=== PATIENT | female | born 1955 | race Caucasian/White ===

== ENCOUNTER 2020-12-17 18:39 | Emergency (ER) | payer OTHER ==
[2020-12-17 18:56] VITALS: TEMP 97.8
[2020-12-17] MEDS ORDERED: SODIUM CHLORIDE 0.9% 500 ML 500 ML IV STA (19:24)
--- NOTE | 2020-12-17 19:44 | ED ---
General Adult HPI - General Chief complaint: Nausea/Vomiting/Diarrhea Stated complaint: Abd pain Time Seen by Provider: 12/17/20 18:59 Source: patient Mode of arrival: ambulatory Limitations: no limitations - History of Present Illness Initial comments: 65 year-old female patient presents to the emergency department for evaluation of right upper quadrant abdominal pain. Patient states that pain started yesterday. States she has had similar episodes intermittently over the last couple of years. Denies any associated nausea, vomiting, fever, chills, di arrhea, constipation, or any other symptoms. Denies radiation of pain to her back or shoulder. Denies any shortness of breath or chest pain. States she has had a hernia in the past and this pain feels similar. She has had cholecystectomy and appendectomy in the past. Patient denies any recent rash, cough, diarrhea, constipation, back pain, numbness, tingling, dizziness, weakness, hematuria, dysuria, urinary urgency, urinary frequency, headache, visual changes, or any other complaints. - Related Data Allergies Allergy/AdvReac Type Severity Reaction Status Date / Time carbamazepine [From Tegretol] Allergy Unknown Verified 12/17/20 18:56 Review of Systems ROS Statement: Those systems with pertinent positive or pertinent negative responses have been documented in the HPI. ROS Other: All systems not noted in ROS Statement are negative. Past Medical History Past Medical History: Diabetes Mellitus, Hypertension History of Any Multi-Drug Resistant Organisms: None Reported Past Surgical History: Appendectomy, Cholecystectomy, Tonsillectomy, Tubal Ligation Past Psychological History: No Psychological Hx Reported Smoking Status: Current every day smoker Past Alcohol Use History: None Reported Past Drug Use History: None Reported General Exam Limitations: no limitations General appearance: alert, in no apparent distress, other (This is a well- developed, well-nourished adult female patient in no acute distress. Vital signs upon presentation temperature 97.8F, pulse 82, respirations 20, blood pressure 150/76, pulse ox 95% on room air.) Eye exam: Present: normal appearance, PERRL, EOMI. Absent: scleral icterus, conjunctival injection, periorbital swelling ENT exam: Present: normal exam, normal oropharynx, mucous membranes moist Respiratory exam: Present: normal lung sounds bilaterally. Absent: respiratory distress, wheezes, rales, rhonchi, stridor Cardiovascular Exam: Present: regular rate, normal rhythm, normal heart sounds. Absent: systolic murmur, diastolic murmur, rubs, gallop, clicks GI/Abdominal exam: Present: soft, tenderness (Mild right upper quadrant), normal bowel sounds. Absent: distended, guarding, rebound, rigid Back exam: Present: normal inspection. Absent: CVA tenderness (R), CVA tenderness (L) Neurological exam: Present: alert, oriented X3, CN II-XII intact Psychiatric exam: Present: normal affect, normal mood Skin exam: Present: warm, dry, intact, normal color. Absent: rash Course Vital Signs 12/17/20 18:53 Temperature 97.8 F Pulse Rate 82 Respiratory 20 Rate Blood Pressure 150/76 O2 Sat by Pulse 95 Oximetry Medical Decision Making - Medical Decision Making 65-year-old female patient presents to the emergency department today for evaluation of right upper quadrant abdominal pain. She also requested chest x- ray for cough. Physical examination did reveal some mild right upper quadrant tenderness. No guarding or rebound. No peritoneal signs. She is afebrile, vital signs. Labs reviewed and did reveal normal white blood cell count. Glucose was elevated at 217. Urinalysis shows no sign of infection. Chest x- ray negative. CT abdomen and pelvis negative. Did discuss periumbilical fat- containing hernia. I did discuss findings results with the patient. States she is feeling well sitting up in bed, comfortable. She declined pain medication. She'll be discharged follow-up with her primary care physician for recheck in 1- 2 days. Return parameters discussed in detail. She verbalizes understanding and agrees this plan. Case discussed my attending Dr. Angela. - Lab Data Result diagrams: 12/17/20 19:30 12/17/20 19:30 Lab Results 12/17/20 12/17/20 12/17/20 Range/Units 19:30 19:30 19:30 WBC 7.4 (3.8-10.6) k/uL RBC 5.32 (3.80-5.40) m/uL Hgb 14.9 (11.4-16.0) gm/dL Hct 46.0 (34.0-46.0) % MCV 86.4 (80.0-100.0) fL MCH 28.0 (25.0-35.0) pg MCHC 32.4 (31.0-37.0) g/dL RDW 13.6 (11.5-15.5) % Plt Count 217 (150-450) k/uL MPV 6.9 Neutrophils % 53 % Lymphocytes % 31 % Monocytes % 8 % Eosinophils % 3 % Basophils % 2 % Neutrophils # 4.0 (1.3-7.7) k/uL Lymphocytes # 2.3 (1.0-4.8) k/uL Monocytes # 0.6 (0-1.0) k/uL Eosinophils # 0.2 (0-0.7) k/uL Basophils # 0.1 (0-0.2) k/uL Sodium 134 L (137-145) mmol/L Potassium 4.7 (3.5-5.1) mmol/L Chloride 101 (98-107) mmol/L Carbon Dioxide 25 (22-30) mmol/L Anion Gap 8 mmol/L BUN 18 H (7-17) mg/dL Creatinine 0.79 (0.52-1.04) mg/dL Est GFR (CKD-EPI)AfAm >90 (>60 ml/min/1.73 sqM) Est GFR (CKD-EPI)NonAf 80 (>60 ml/min/1.73 sqM) Glucose 217 H (74-99) mg/dL Plasma Lactic Acid Juan J (0.7-2.0) mmol/L Calcium 9.7 (8.4-10.2) mg/dL Total Bilirubin 0.2 (0.2-1.3) mg/dL AST 31 (14-36) U/L ALT 19 (4-34) U/L Alkaline Phosphatase 116 (38-126) U/L Total Protein 6.5 (6.3-8.2) g/dL Albumin 3.8 (3.5-5.0) g/dL Lipase 36 (23-300) U/L Urine Color Yellow Urine Appearance Clear (Clear) Urine pH 6.5 (5.0-8.0) Ur Specific [place] 1.027 (1.001-1.035) Urine Protein 1+ H (Negative) Urine Glucose (UA) Negative (Negative) Urine Ketones Negative (Negative) Urine Blood Negative (Negative) Urine Nitrite Negative (Negative) Urine Bilirubin Negative (Negative) Urine Urobilinogen <2.0 (<2.0) mg/dL Ur Leukocyte Esterase Negative (Negative) Urine RBC 5 (0-5) /hpf Urine WBC 2 (0-5) /hpf Ur Squamous Epith Cells 1 (0-4) /hpf Urine Bacteria Few H (None) /hpf Hyaline Casts 7 H (0-2) /lpf Urine Mucus Rare H (None) /hpf 12/17/20 Range/Units 19:30 WBC (3.8-10.6) k/uL RBC (3.80-5.40) m/uL Hgb (11.4-16.0) gm/dL Hct (34.0-46.0) % MCV (80.0-100.0) fL MCH (25.0-35.0) pg MCHC (31.0-37.0) g/dL RDW (11.5-15.5) % Plt Count (150-450) k/uL MPV Neutrophils % % Lymphocytes % % Monocytes % % Eosinophils % % Basophils % % Neutrophils # (1.3-7.7) k/uL Lymphocytes # (1.0-4.8) k/uL Monocytes # (0-1.0) k/uL Eosinophils # (0-0.7) k/uL Basophils # (0-0.2) k/uL Sodium (137-145) mmol/L Potassium (3.5-5.1) mmol/L Chloride (98-107) mmol/L Carbon Dioxide (22-30) mmol/L Anion Gap mmol/L BUN (7-17) mg/dL Creatinine (0.52-1.04) mg/dL Est GFR (CKD-EPI)AfAm (>60 ml/min/1.73 sqM) Est GFR (CKD-EPI)NonAf (>60 ml/min/1.73 sqM) Glucose (74-99) mg/dL Plasma Lactic Acid Juan J 1.2 (0.7-2.0) mmol/L Calcium (8.4-10.2) mg/dL Total Bilirubin (0.2-1.3) mg/dL AST (14-36) U/L ALT (4-34) U/L Alkaline Phosphatase (38-126) U/L Total Protein (6.3-8.2) g/dL Albumin (3.5-5.0) g/dL Lipase (23-300) U/L Urine Color Urine Appearance (Clear) Urine pH (5.0-8.0) Ur Specific [place] (1.001-1.035) Urine Protein (Negative) Urine Glucose (UA) (Negative) Urine Ketones (Negative) Urine Blood (Negative) Urine Nitrite (Negative) Urine Bilirubin (Negative) Urine Urobilinogen (<2.0) mg/dL Ur Leukocyte Esterase (Negative) Urine RBC (0-5) /hpf Urine WBC (0-5) /hpf Ur Squamous Epith Cells (0-4) /hpf Urine Bacteria (None) /hpf Hyaline Casts (0-2) /lpf Urine Mucus (None) /hpf - Radiology Data Radiology results: report reviewed, image reviewed Two-view x-ray of the chest is obtained. Report was reviewed in its entirety. Impression by Dr. Kelly shows no active cardiopulmonary disease. Normal heart. CT abdomen and pelvis with contrast obtained. Report reviewed in its entirety. Impression by Dr. Kelly shows no acute abnormality of the abdomen and pelvis. Lumbar spondylotic changes. Appendix not seen. Disposition Clinical Impression: Abdominal pain, Cough Disposition: HOME SELF-CARE Condition: Good Instructions (If sedation given, give patient instructions): Abdominal Pain (ED), Acute Cough (ED) Additional Instructions: Follow-up with your primary care physician for recheck in 1-2 days. Return for any new, worsening, or concerning symptoms. Is patient prescribed a controlled substance at d/c from ED?: No Referrals: Jack Jacobo MD [Primary Care Provider] - 1-2 days Time of Disposition: 21:00
[2020-12-17 19:59] LABS: Basophils # (A) 0.1 k/uL (0-0.2); Basophils % (A) 2 %; Eosinophils # (A) 0.2 k/uL (0-0.7); Eosinophils % (A) 3 %; HGB 14.9 gm/dL (11.4-16.0); Lymphocytes # (A) 2.3 k/uL (1.0-4.8); Lymphocytes % (A) 31 %; MCHC 32.4 g/dL (31.0-37.0); MCV 86.4 fL (80.0-100.0); Mean Platelet Volume 6.9; Monocytes # (A) 0.6 k/uL (0-1.0); Monocytes % (A) 8 %; Neutrophils % (A) 53 %; Platelet Count 217 k/uL (150-450); RBC 5.32 m/uL (3.80-5.40); RDW 13.6 % (11.5-15.5); WBC 7.4 k/uL (3.8-10.6)
[2020-12-17 20:07] LABS: Appearance,Urine Clear (Clear); Bacteria,Urine Few /hpf; Bilirubin,Urine Negative (Negative); Blood,Urine Negative (Negative); Color,Urine Yellow; Glucose,Urine (UA) Negative (Negative); Hyaline Casts,Urine 7 /lpf (0-2); Ketones,Urine Negative (Negative); Leukocyte Esterase,Urine Negative (Negative); Mucus,Urine Rare /hpf; Nitrite,Urine Negative (Negative); PH, Urine 6.5 (5.0-8.0); Protein,Urine 1+ (Negative); RBC,Urine 5 /hpf (0-5); Specific Gravity,Urine 1.027 (1.001-1.035); Squamous Epithelial Cell,Urine 1 /hpf (0-4); Urobilinogen,Urine <2.0 mg/dL (<2.0); WBC,Urine 2 /hpf (0-5)
[2020-12-17 20:09] LABS: ALT 19 U/L (4-34); AST 31 U/L (14-36); African American GFR (CKD) >90 (>60 ml/min/1.73 sqM); Albumin 3.8 g/dL (3.5-5.0); Alkaline Phosphatase 116 U/L (38-126); Anion Gap 8 mmol/L; Blood Urea Nitrogen 18 mg/dL (7-17); Calcium 9.7 mg/dL (8.4-10.2); Carbon Dioxide 25 mmol/L (22-30); Chloride 101 mmol/L (98-107); Glucose 217 mg/dL (74-99); Lipase 36 U/L (23-300); Non-African American GFR(CKD) 80 (>60 ml/min/1.73 sqM); Potassium 4.7 mmol/L (3.5-5.1); Sodium 134 mmol/L (137-145); Total Bilirubin 0.2 mg/dL (0.2-1.3); Total Protein 6.5 g/dL (6.3-8.2)
--- NOTE | 2020-12-17 20:39 | XR ---
EXAMINATION TYPE: XR chest 2V DATE OF EXAM: 12/17/2020 COMPARISON: NONE HISTORY: Pain. Cough. TECHNIQUE: FINDINGS: Heart and mediastinum are normal. Lungs are clear. Diaphragm is normal. There is spurring i n the thoracic spine. Costophrenic angles are clear. IMPRESSION: No active cardiopulmonary disease. Normal heart.
--- NOTE | 2020-12-17 20:44 | CT ---
EXAMINATION TYPE: CT abdomen pelvis w con DATE OF EXAM: 12/17/2020 COMPARISON: None HISTORY: Right sided abdominal pain. CT DLP: 2763.4 mGycm Automated exposure control for dose reduction was used. CONTRAST: Performed with IV Contrast, patient injected with 100ml mL of Isovue 300. The lung bases are clear. There is no pleural effusion. Heart size is normal. There is no pericardial effusion. Liver spleen stomach pancreas appear intact. The bile ducts are not dilated. There are cli ps from cholecystectomy. There are 1.5 cm low-density bilateral adrenal masses consistent with benign disease. Kidneys show sa tisfactory contrast opacification. There is no hydronephrosis. Delayed images show normal renal excre tion. There is no retroperitoneal adenopathy. There is broad-based umbilical hernia that contains fat . Bladder distends smoothly. There is no inguinal hernia. Uterus is anteverted. There is no free flui d in the pelvis. There is no mesenteric edema. There is no ascites or free air. There is no bowel obstruction. Appendi x is not seen. There is no sign of thickened appendix. Lumbar vertebra have normal alignment. There is anterior spurring in the lumbar spine. There is no co mpression fracture. The posterior elements are intact. The bony pelvis is intact. The hip joints are intact. There is mild acetabular spurring. IMPRESSION: No acute abnormality of the abdomen pelvis. Lumbar spondylotic changes. Appendix not seen.
[2020-12-17 21:03] VITALS: BP 148/78; PULSE 88; RESP 16
== END 2020-12-17 21:07 | disposition home or self-care (01) ==
LOC: EC 18:39
DX: R10.11 Right upper quadrant pain (principal); R05 Cough; I10 Essential (primary) hypertension; E11.9 Type 2 diabetes mellitus without complications; F17.200 Nicotine dependence, unspecified, uncomplicated
CPT/HCPCS: 36415; 80053; 83605; 83690; 85025; 81001; 71046; 74177; 99284; 96360; Q9967

== ENCOUNTER 2022-07-08 07:07 | Emergency (ER) | payer MEDICARE, OTHER ==
[2022-07-08 07:16] VITALS: PULSE 91; RESP 16; TEMP 97.9
--- NOTE | 2022-07-08 07:46 | XR ---
EXAMINATION TYPE: XR shoulder complete RT DATE OF EXAM: 07/08/2022 CLINICAL HISTORY: Fall injury with pain TECHNIQUE: Three views of the right shoulder are obtained. COMPARISON: None. FINDINGS: Osseous structures are demineralized. There is subtle linear lucency with cortical step off consistent with acute nondisplaced comminuted fracture through the humeral head with some small bony fragments along the medial margin. No glenohumeral joint dislocation. Moderate narrowing and mild to moderate spurring at acromioclavicular joint with moderate to severe inferior capsular hypertrophy. Visualized ribs are intact. IMPRESSION: As above.
[2022-07-08] MEDS ORDERED: HYDROcodone/APAP 5-325MG 1 EACH TAB PO STA (08:17)
--- NOTE | 2022-07-08 08:27 | ED ---
General Adult HPI - General Chief complaint: Fall Stated complaint: rt shoulder injury - fall Source: patient Mode of arrival: ambulatory Limitations: no limitations - History of Present Illness Initial comments: seen in advanced triage: 67 year old female was walking home from her sons house last night at 1 am. She missed a step fell forward on the cement. She did not hit her head. Denies any neck pain. She fell on her right shoulder. She went home and tried to sleep but pain was persistent so presented to the ER. Patient has not taken her BP medication yet today but it is due so she took 20 mg Lisinopril and Nadolol in the ER. - Related Data Previous Rx's Medication Instructions Recorded HYDROcodone/APAP 5-325MG [[place] 1 tab PO Q6HR PRN #12 tab 07/08/22 5-325] Allergies Allergy/AdvReac Type Severity Reaction Status Date / Time carbamazepine [From Tegretol] Allergy Unknown Verified 07/08/22 07:12 Review of Systems ROS Statement: Those systems with pertinent positive or pertinent negative responses have been documented in the HPI. ROS Other: All systems not noted in ROS Statement are negative. Past Medical History Past Medical History: Diabetes Mellitus, Hypertension History of Any Multi-Drug Resistant Organisms: None Reported Past Surgical History: Appendectomy, Cholecystectomy, Tonsillectomy, Tubal Ligation Past Psychological History: No Psychological Hx Reported Smoking Status: Current every day smoker Past Alcohol Use History: None Reported Past Drug Use History: None Reported General Exam Limitations: no limitations General appearance: alert, in no apparent distress Head exam: Present: atraumatic Eye exam: Present: normal appearance. Absent: PERRL, EOMI, scleral icterus ENT exam: Present: normal exam, mucous membranes moist Neck exam: Present: normal inspection, full ROM. Absent: tenderness Respiratory exam: Present: normal lung sounds bilaterally. Absent: respiratory distress, wheezes Cardiovascular Exam: Present: regular rate, normal rhythm, normal heart sounds Extremities exam: Present: tenderness (Tenderness to right shoulder), normal capillary refill (cap refill < 2 seconds, radial pulse 2+ RUE). Absent: full ROM (unable to move right shoulder secondary to pain.) Neurological exam: Present: alert Course Vital Signs 07/08/22 07:13 Temperature 97.9 F Pulse Rate 91 Respiratory 16 Rate Blood Pressure 215/82 O2 Sat by Pulse 98 Oximetry Procedures - Orthopedic Splinting/Casting Injury #1 Side: right Upper Extremity Injury Location: shoulder Upper Extremity Immobilizer: sling/shoulder immobilizer Additional Comments: NV status intact after splint applied. Medical Decision Making - Medical Decision Making BP was high likely secondary to pain and the fact that patient didn't take her bp meds which are. Patient did take her blood pressure medications here in the ER. Splint was applied. Patient was given follow-up information for orthopedic associates. Pain medication was sent to pharmacy. Was pt. sent in by a medical professional or institution (, [facility], EVENT COORDINATOR, urgent care, hospital, or longterm...) When possible be specific @ -No Did you speak to anyone other than the patient for history (EMS, parent, family, police, friend...)? What history was obtained from this source @ -yes, and patient Did you review nursing and triage notes (agree or disagree)? Why? @ -I reviewed and agree with nursing and triage notes Were old charts reviewed (outside hosp., previous admission, EMS record, old EKG, old radiological studies, urgent care reports/EKG's, longterm records)? Report findings @ -No old charts were reviewed Differential Diagnosis (chest pain, altered mental status, abdominal pain women, abdominal pain men, vaginal bleeding, weakness, fever, dyspnea, syncope, headache, dizziness, GI bleed, back pain, seizure, CVA, palpatations, mental health)? @ -not applicable EKG interpreted by me (3pts min.). @ none done X-rays interpreted by me (1pt min.). @ -yes, fracture of right humerus CT interpreted by me (1pt min.). @ -None done U/S interpreted by me (1pt. min.). @ -None done What testing was considered but not performed or refused? (CT, X-rays, U/S, labs)? Why? @ -None What meds were considered but not given or refused? Why? @ -IM pain medicine, refused, preferred oral pain medicine Did you discuss the management of the patient with other professionals (professionals i.e. GARC[facility]A Hawkins, EVENT COORDINATOR, lab, RT, psych nurse, social service coordinator, family engagement specialist, teacher, dairy quality assurance officer, case operator)? Give summary @ -yes, ER physician Dr Taylor Was smoking cessation discussed for >3mins.? @ -No dWas critical care preformed (if so, how long)? @ -No Were there social determinants of health that impacted care today? How? (Homelessness, low income, unemployed, alcoholism, drug addiction, transportation, low edu. Level, literacy, decrease access to med. care, shelter, rehab)? @ -No Was there de-escalation of care discussed even if they declined (Discuss DNR or withdrawal of care, Hospice)? DNR status @ -No What co-morbidities impacted this encounter? (DM, HTN, Smoking, COPD, CAD, C ancer, CVA, ARF, Chemo, Hep., AIDS, mental health diagnosis, sleep apnea, morbid obesity)? @ -None Was patient admitted / discharged? Hospital course, mention meds given and route, prescriptions, significant lab abnormalities, going to OR and other pertinent info. @ -patient was given pain meds, sling applied, and discharged home to follow up with ortho Undiagnosed new problem with uncertain prognosis? @ -no Drug Therapy requiring intensive monitoring for toxicity (Heparin, Nitro, Insulin, Cardizem)? @ -no Were any procedures done? @ - shoulder immobilizer applied Diagnosis/symptom? @ - humerus fracture Acute, or Chronic, or Acute on Chronic? @ -acute Uncomplicated (without systemic symptoms) or Complicated (systemic symptoms)? @ -uncomplicated Side effects of treatment? @ -No Exacerbation, Progression, or Severe Exacerbation? @ -No Poses a threat to life or bodily function? How? (Chest pain, [place], [place], pneumonia, PE, COPD, DKA, ARF, appy, cholecystitis, CVA, Diverticulitis, Homicidal, Suicidal, threat to staff... and all critical care pts) @ -No Disposition Clinical Impression: Fracture of humeral head, right, closed Disposition: HOME SELF-CARE Condition: Fair Instructions (If sedation given, give patient instructions): Shoulder Pain (ED), Shoulder Immobilizer (ED) Additional Instructions: Pleas take [place] as needed. You can also take motrin or tylenol but make sure you are only taking a 650 mg tylenol up to 4 times per day since there is tylenol in the [place]. Use shoulder immobilizer. Call orthopedic associates to make an appointment. Prescriptions: HYDROcodone/APAP 5-325MG [[place] 5-325] 1 tab PO Q6HR PRN #12 tab PRN Reason: Pain Is patient prescribed a controlled substance at d/c from ED?: Yes When asked, does pt state using other controlled substances?: No If prescribed controlled substance>3 days was MAPS reviewed?: Prescribed <3 Days If opioid is for acute pain is fill amount 7 days or less?: Yes If Rx opioid, was Start Talking consent form obtained?: Yes Referrals: Jack Jacobo MD [Primary Care Provider] - 1-2 days Jeremy Sharma MD [STAFF PHYSICIAN] - 1-2 days Time of Disposition: 08:35
[2022-07-08 09:04] VITALS: BP 169/98
== END 2022-07-08 09:04 | disposition home or self-care (01) ==
LOC: EC 07:07
DX: S42.201A Unspecified fracture of upper end of right humerus, initial encounter for closed fracture (principal); E11.9 Type 2 diabetes mellitus without complications; I10 Essential (primary) hypertension; F17.200 Nicotine dependence, unspecified, uncomplicated; Z88.8 Allergy status to other drugs, medicaments and biological substances; W01.198A Fall on same level from slipping, tripping and stumbling with subsequent striking against other object, initial encounter
CPT/HCPCS: 73030; 99284; L3670 ×2

== ENCOUNTER → 2022-10-31 | Outpatient (CLI) | payer MEDICARE ==
--- NOTE | 2022-10-31 12:23 | MR ---
EXAMINATION TYPE: MR lumbar spine wo con DATE OF EXAM: 10/31/2022 11:44 AM COMPARISON: CT 10/17/2020. CLINICAL INDICATION:Female, 67 years old with history of M47.816 SPONDYLOSIS W/O MYELOPATHY OR RADICU LOPATH; Chronic lower back pain. TECHNIQUE: Multi planar, multi sequence imaging was performed utilizing: T1-weighted, T2-weighted, a nd turbo inversion recovery imaging of the lumbar spine. IV Contrast: None. FINDINGS: Alignment: The lumbar vertebral bodies have preserved heights and alignment. Cord: The conus medullaris and the distal spinal cord appear unremarkable with regards to their signa l intensity and morphology. Bones/Discs: Disc desiccation most pronounced at the lower spine at L4-L5 and L5-S1. Reactive bony ed sima of the adjoining endplates at anterior aspect of L5-S1. Scattered Modic endplate changes are pres ent throughout the spine. Suspected L2 vertebral body hemangioma which is high T1 high T2 signal. The re is endplate osteophyte formation and facet joint arthropathy present throughout the spine. T12-L1: Central and right central low T1/T2 signal protuberance compatible with osteophyte and prior CT. The spinal canal and neural foramen are patent. L1-L2: Left central low T1/T2 signal protuberance compatible with osteophyte and prior CT. The spinal canal and neural foramen are patent. L2-L3: No evidence of significant spinal canal stenosis or neural foraminal stenosis. L3-L4: Disc bulge and facet joint arthropathy result in mild spinal canal and mild bilateral neural f oraminal stenosis. L4-L5: Disc bulge and facet joint arthropathy result in mild spinal canal and mild bilateral neural f oraminal stenosis. L5-S1: The disc is rounded posterior morphology without significant spinal canal stenosis. Facet join t arthropathy with mild neural foraminal stenosis. Other findings: Stable retroperitoneal lymph nodes dating back to 12/17/2020. IMPRESSION: 1. Left central disc protrusion at L1-L2 without significant spinal canal stenosis. No definitive ev idence of disc herniation or significant spinal canal stenosis. 2. Mild to moderate disc degeneration with associated osteoarthritic changes.
== END | disposition home or self-care (01) ==
LOC: RADMRIMAIN 10:39
PROVIDERS: ATTEND Physical Medicine & Rehabilitation
DX: M47.816 Spondylosis without myelopathy or radiculopathy, lumbar region (principal); M47.817 Spondylosis without myelopathy or radiculopathy, lumbosacral region; M48.062 Spinal stenosis, lumbar region with neurogenic claudication
CPT/HCPCS: 72148

== ENCOUNTER 2024-05-03 19:32 | Emergency (ER) | payer MEDICARE ==
--- NOTE | 2024-05-03 20:01 | ED ---
Skin/Abscess/FB HPI - General Chief complaint: Skin/Abscess/Foreign Body Stated complaint: abscess, L breast Time Seen by Provider: 05/03/24 19:50 Source: patient, RN notes reviewed Limitations: no limitations - History of Present Illness Initial comments: This is a 69-year-old female with history of type 2 diabetes presenting to the emergency department chief complaint of a left breast abscess. Patient states that she began to develop pain and redness to the left breast approximately 9 days ago. Patient went to her primary care provider on Sunday where she was diagnosed with a breast abscess and started on clindamycin 3 times a day. Patient states that the abscess opened spontaneously a few days ago that resulted in purulent drainage and serous drainage. States that today she began to experience bloody discharge and drainage as well. Patient denies fevers, chills, nausea, vomiting, chest pain, shortness of breath, difficulty breathing. Denies history of breast abscess. Patient states that she has a prescription for mammogram but has not yet completed this. denies nipple discharge. - Related Data Previous Rx's Medication Instructions Recorded HYDROcodone/APAP 5-325MG [[place] 1 tab PO Q6HR PRN #12 tab 07/08/22 5-325] Allergies Allergy/AdvReac Type Severity Reaction Status Date / Time carbamazepine [From Tegretol] Allergy Unknown Verified 05/03/24 19:34 Review of Systems ROS Statement: Those systems with pertinent positive or pertinent negative responses have been documented in the HPI. ROS Other: All systems not noted in ROS Statement are negative. 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 Absent: scleral icterus, conjunctival injection, periorbital swelling ENT exam: Present: normal exam, mucous membranes moist Neck exam: Present: normal inspection. Absent: tenderness, meningismus, lymphadenopathy Respiratory exam: Present: normal lung sounds bilaterally. Absent: respiratory distress, wheezes, rales, rhonchi, stridor Cardiovascular Exam: Present: regular rate, normal rhythm, normal heart sounds. Absent: systolic murmur, diastolic murmur, rubs, gallop, clicks GI/Abdominal exam: Present: soft, normal bowel sounds. Absent: distended, tenderness, guarding, rebound, rigid Extremities exam: Present: normal inspection, full ROM, normal capillary refill. Absent: tenderness, pedal edema, joint swelling, calf tenderness Back exam: Present: normal inspection Skin exam: Present: warm, dry, intact, normal color, other (left sided breast erythema, fluctuance, and abscess with mild active drainage). Absent: rash Course Vital Signs 05/03/24 05/03/24 05/03/24 19:35 22:07 23:47 Temperature 97.4 F L 98.7 F Pulse Rate 87 76 81 Respiratory 19 16 18 Rate Blood Pressure 151/78 160/85 161/82 O2 Sat by Pulse 97 97 96 Oximetry Medical Decision Making - Medical Decision Making Was pt. sent in by a medical professional or institution (, PA, CATEGORY CONSULTANT, urgent care, hospital, or [facility]...) When possible be specific @ -No Did you speak to anyone other than the patient for history (EMS, parent, family, police, friend...)? What history was obtained from this source @ -No Did you review nursing and triage notes (agree or disagree)? Why? @ -I reviewed and agree with nursing and triage notes Were old charts reviewed (outside hosp., previous admission, EMS record, old EKG, old radiological studies, urgent care reports/EKG's, [facility] records)? Report findings @ -No old charts were reviewed Differential Diagnosis (chest pain, altered mental status, abdominal pain women, abdominal pain men, vaginal bleeding, weakness, fever, dyspnea, syncope, headache, dizziness, GI bleed, back pain, seizure, CVA, palpatations, mental health, musculoskeletal)? @ -Abscess, cellulitis, malignancy, this list is not all inclusive. EKG interpreted by me (3pts min.). @ -none X-rays interpreted by me (1pt min.). @ -None done CT interpreted by me (1pt min.). @ -None done U/S interpreted by me (1pt. min.). @ -Left breast remarkable for inflammation with no obvious signs of fluid collection What testing was considered but not performed or refused? (CT, X-rays, U/S, labs)? Why? @ -None What meds were considered but not given or refused? Why? @ -None Did you discuss the management of the patient with other professionals (professionals i.e. DrImmanuel, PA, CATEGORY CONSULTANT, lab, RT, psych nurse, social work lecturer, floorhand, teacher, chief security and safety officer, transplant case manager)? Give summary @ -No Was smoking cessation discussed for >3mins.? @ -No Was critical care preformed (if so, how long)? @ -No Were there social determinants of health that impacted care today? How? (Homelessness, low income, unemployed, alcoholism, drug addiction, transportation, low edu. Level, literacy, decrease access to med. care, intermediate, rehab)? @ -No Was there de-escalation of care discussed even if they declined (Discuss DNR or withdrawal of care, Hospice)? DNR status @ -No What co-morbidities impacted this encounter? (DM, HTN, Smoking, COPD, CAD, Cancer, CVA, ARF, Chemo, Hep., AIDS, mental health diagnosis, sleep apnea, morbid obesity)? @ -None Was patient admitted / discharged? Hospital course, mention meds given and rout e, prescriptions, significant lab abnormalities, going to OR and other pertinent info. @ -Discharge. 69-year-old female with left breast abscess. Patient's vitals are stable. Examination reveals erythema, fluctuance, and mild tenderness to the touch of the patient's left breast with a noted abscess with mild serous drainage. Patient was offered pain medication but she declined this time. Verb al report of ultrasound reveals evidence of inflammation with no acute fluid collection of the breast. Patient is provided with dose of Rocephin and instructed to follow-up outpatient with primary care provider and provided breast surgeon for further evaluation. Discussed with Dr. Álvarez Undiagnosed new problem with uncertain prognosis? @ -No Drug Therapy requiring intensive monitoring for toxicity (Heparin, Nitro, Insulin, Cardizem)? @ -No Were any procedures done? @ -No Diagnosis/symptom? @ -Breast abscess, cellulitis Acute, or Chronic, or Acute on Chronic? @ -Acute Uncomplicated (without systemic symptoms) or Complicated (systemic symptoms)? @ -Uncomplicated Side effects of treatment? @ -No Exacerbation, Progression, or Severe Exacerbation? @ -No Poses a threat to life or bodily function? How? (Chest pain, [place], [place], pneumonia, PE, COPD, DKA, ARF, appy, cholecystitis, CVA, Diverticulitis, Homicidal, Suicidal, threat to staff... and all critical care pts) @ -No Disposition Clinical Impression: Breast infection, Cellulitis Disposition: HOME SELF-CARE Condition: Good Instructions (If sedation given, give patient instructions): Cellulitis (ED) Additional Instructions: Please return to the Emergency Department if symptoms worsen or any other concerns. Recommend that you complete full course of clindamycin as prescribed. Call provided surgeon on Sunday to schedule follow-up appointment for further evaluation. Additionally, recommend that you schedule mammogram for further evaluation. Is patient prescribed a controlled substance at d/c from ED?: No Referrals: Jack Jacobo MD [Primary Care Provider] - 1-2 days Katheryn Rich MD [STAFF PHYSICIAN] - 1-2 days Time of Disposition: 23:33
[2024-05-03] MEDS: cefTRIAXone 1,000 MG VIAL (IM USE) IM STA (23:42)
[2024-05-03 23:52] VITALS: BP 161/82; PULSE 81; RESP 18; TEMP 98.7
--- NOTE | 2024-05-05 07:37 | USB ---
Reason for Exam: Clinical finding. Risk Values: [place] 5 year model risk: 1.1%. NCI Lifetime model risk: 3.7%. Technique: Method: Targeted. Findings: The medial section of the breast of the left breast was scanned. Complex area seen at area of concern 9:00 with underlying complex fluid collection likely present likely representing abscess. Overall Assessment: Benign, BI-RAD 2 Management: Screening Mammogram of both breasts in 1 year. Clinical management for patient's breast infection. A clinical breast exam by your physician is recommended on an annual basis and results should be correlated with mammographic findings. This exam should not preclude additional follow-up of suspicious palpable abnormalities. Results were given to the patient verbally at the time of exam. [facility], , 05/03/2024 8:51 PM . Electronically signed and approved by: Jack Salguero DO
== END 2024-05-03 23:52 | disposition home or self-care (01) ==
LOC: EC 19:32
DX: N61.0 Mastitis without abscess (principal); F17.200 Nicotine dependence, unspecified, uncomplicated; Z88.8 Allergy status to other drugs, medicaments and biological substances
CPT/HCPCS: 76642; 99283; 96372; J0696